=== PATIENT | female | born 1960 | race Caucasian/White ===

== ENCOUNTER → 2020-02-13 | Outpatient (CLI) | payer MEDICARE, BC ==
[2015-10-17 11:00] VITALS: BP 126/74
[~2020-02-13] MED LIST: 5HYD200C PO; ASCO500T53 PO; ASPI325T11 PO; BUPR150T7 PO; BUSP10TA PO; CALC500T30 PO; CHOL-5 PO; CLINDAMYCIN 900MG PREMIX 50 ML IV PRN; DICL100G54 TP; DIPH25CA58 PO; DULO60CA6 PO; ESTR-113 PO; FERR325T58 PO; FLUO40CA2 PO; LISI-334 PO; LORA0.5T96 PO; MELO15TA23 PO; MILK200C2 PO; MUPI1OIN6 TP; OMEP20CA16 PO; OXYC1TAB15 PO; RISP1TAB88 PO; TRAM50TA PO; VANCOMYCIN 1GM IVPB FOR OMNI 250 ML IV PRN; ZOLP10TA4 PO
[2020-02-13 10:47] LABS: ALBUMIN 3.9 g/dL (3.4-5.0); C-REACTIVE PROTEIN 7.6 mg/L (0-3.3); CALCIUM 9.8 mg/dL (8.5-10.1); CREATININE 0.9 mg/dL (0.6-1.0); GFR 64.5; POTASSIUM 4.8 mmol/L (3.5-5.1)
[2020-02-13 11:32] LABS: BASO % 0 % (0-3); EOS # 0.2 x10^3/uL (0.0-0.7); EOS % 2 % (0-3); HEMATOCRIT 40.1 % (36.0-47.0); LYMPH # 2.2 x10^3/uL (1.0-4.8); LYMPH % 25 % (24-48); MEAN CORPUSCULAR HEMOGLOBIN 28 pg (25-35); MEAN CORPUSCULAR HGB CONC 32 g/dL (31-37); MEAN CORPUSCULAR VOLUME 87 fL (79-100); MONO # 0.9 x10^3/uL (0.0-1.1); MONO % 10 % (0-9); NEUT # 5.5 x10^3/uL (1.8-7.7); NEUT % 63 % (31-73); PLATELET COUNT 292 x10^3/uL (140-400); RED BLOOD COUNT 4.62 x10^6/uL (3.50-5.40); RED CELL DISTRIBUTION WIDTH 16.4 % (11.5-14.5); WHITE BLOOD COUNT 8.7 x10^3/uL (4.0-11.0)
[2020-02-13 12:00] LABS: PROTHROMBIN TIME PATIENT 12.7 SEC (11.7-14.0)
--- NOTE | 2020-02-13 13:15 | RAD ---
EXAM: Chest, 2 views. HISTORY: Hypertension. Preoperative evaluation. COMPARISON: None. FINDINGS: 2 views of the chest are obtained. There is no infiltrate, protrusion or pneumothorax. There is a large hiatal hernia with intrathoracic positioning of the stomach. The heart is normal in size. There are few calcified granulomas. IMPRESSION: 1. No acute pulmonary finding. 2. Large hiatal hernia. Electronically signed by: Ethel Davlia MD (02/13/2020 1:13 PM) [id number]
--- NOTE | 2020-02-13 13:23 | EKG ---
[facility] [address] [place] [address] Test Date: 2020-02-13 Test Time: 12:43:30 Pat Name: ORESTES NORRIS Department: Room: Gender: F [employer]: : 1960 Requested By: NUPUR MICHELLE Order Number: [id number] Reading MD: Bunny Olmstead MD Measurements Intervals [place] Rate: 88 P: 27 [place]: 166 QRS: 28 QRSD: 90 T: 45 QT: 346 QTc: 422 Interpretive Statements SINUS RHYTHM Electronically Signed On 02-14-2020 10:23:46 CDT by Bunny Olmstead MD
[2020-02-16 02:19] LABS: HEMOGLOBIN A1C 5.5 % (4.8-5.6)
== END ==
LOC: SURGPAT 08:09
PROVIDERS: ATTEND Orthopaedic Surgery
DX: Z01.818 Encounter for other preprocedural examination (principal); M17.12 Unilateral primary osteoarthritis, left knee; I10 Essential (primary) hypertension; K44.9 Diaphragmatic hernia without obstruction or gangrene; Z86.2 Personal history of diseases of the blood and blood-forming organs and certain disorders involving the immune mechanism
CPT/HCPCS: 36415; 71046; 80048; 82040; 82306; 83036; 85025; 85610; 85730; 86140; 87641; 93005

== ENCOUNTER → 2020-03-02 | Outpatient (CLI) | payer MEDICARE, BC ==
[2015-10-17 11:00] VITALS: BP 126/74
[~2020-03-02] MED LIST changes: -ASPI325T11 PO; +BUPR150T6 PO; -BUPR150T7 PO; -CLINDAMYCIN 900MG PREMIX 50 ML IV PRN; -OXYC1TAB15 PO; -VANCOMYCIN 1GM IVPB FOR OMNI 250 ML IV PRN
== END ==
LOC: LAB 13:50
PROVIDERS: ATTEND Orthopaedic Surgery
DX: Z01.812 Encounter for preprocedural laboratory examination (principal); Z20.828 Contact with and (suspected) exposure to other viral communicable diseases
CPT/HCPCS: U0003

== ENCOUNTER → 2020-06-06 | Outpatient (CLI) | payer MEDICARE, BC ==
[2020-03-09 15:09] VITALS: BP 148/84
[~2020-06-06] MED LIST changes: +ASHW300C PO; +ASPI325T11 PO; -BUPR150T6 PO; +BUPR150T7 PO; -LISI-334 PO; +LISI20TA18 PO; +OXYC1TAB15 PO
[2020-06-06 14:15] LABS: BASO # 0.1 x10^3/uL (0.0-0.2); BASO % 1 % (0-3); EOS # 0.3 x10^3/uL (0.0-0.7); EOS % 5 % (0-3); HEMOGLOBIN 14.1 g/dL (12.0-15.5); LYMPH # 1.6 x10^3/uL (1.0-4.8); LYMPH % 25 % (24-48); MEAN CORPUSCULAR HEMOGLOBIN 30 pg (25-35); MEAN CORPUSCULAR HGB CONC 34 g/dL (31-37); MEAN CORPUSCULAR VOLUME 88 fL (79-100); MONO # 0.6 x10^3/uL (0.0-1.1); MONO % 10 % (0-9); NEUT # 3.7 x10^3/uL (1.8-7.7); NEUT % 59 % (31-73); PLATELET COUNT 291 x10^3/uL (140-400); RED BLOOD COUNT 4.77 x10^6/uL (3.50-5.40); RED CELL DISTRIBUTION WIDTH 13.6 % (11.5-14.5); WHITE BLOOD COUNT 6.3 x10^3/uL (4.0-11.0)
[2020-06-06 14:22] LABS: PROTHROMBIN TIME PATIENT 13.1 SEC (11.7-14.0)
[2020-06-06 14:43] LABS: ALBUMIN 3.9 g/dL (3.4-5.0); CALCIUM 9.7 mg/dL (8.5-10.1); GFR 57.1; POTASSIUM 4.3 mmol/L (3.5-5.1)
[2020-06-07 01:11] LABS: HEMOGLOBIN A1C 5.7 % (4.8-5.6)
== END ==
LOC: SURGPAT 13:33
PROVIDERS: ATTEND Orthopaedic Surgery
DX: Z01.812 Encounter for preprocedural laboratory examination (principal); M17.11 Unilateral primary osteoarthritis, right knee
CPT/HCPCS: 36415; 80048; 82040; 82306; 83036; 85025; 85610; 85730; 86140; 87641

== ENCOUNTER → 2020-06-21 | Outpatient (CLI) | payer MEDICARE, BC ==
[2020-03-09 15:09] VITALS: BP 148/84
[~2020-06-21] MED LIST changes: +BUPR150T21 PO; -BUPR150T7 PO; +POLY119P4 PO
== END ==
LOC: LAB 11:28
PROVIDERS: ATTEND Orthopaedic Surgery
DX: Z01.812 Encounter for preprocedural laboratory examination (principal); M17.11 Unilateral primary osteoarthritis, right knee; Z96.651 Presence of right artificial knee joint; Z88.0 Allergy status to penicillin; Z20.822 Contact with and (suspected) exposure to COVID-19
CPT/HCPCS: U0003